=== PATIENT | male | born 1950 ===

== ENCOUNTER 2022-07-11 08:37 | Day surgery (SDC) | payer BC ==
[2022-07-11 09:32] LABS: MPV 8.1 fL (7.6-11.3)
[2022-07-11 09:35] LABS: Protime INR 1.06
--- NOTE | 2022-07-11 12:34 | RAD REPORT ---
EXAM DESCRIPTION: RAD - Lumbar Spine 3 Views - 07/11/2022 11:29 am CLINICAL HISTORY: M96.1 Radiculopathy COMPARISON: L Spine With Bending Views dated 07/27/2017; LUMBAR SPINE 3 VIEWS dated 10/18/2011; Spine Lumbar Wo Con dated 02/14/2019 FINDINGS: Orthopedic hardware is present spanning L5-S1. No evidence of hardware loosening or infect ion. Grade 1 anterolisthesis of L5 on S1 is present, similar to the 2019 prior study. Vacuum disc deg eneration is present at L2-3 and L4-5.
[2022-07-11 12:40] VITALS: BP 118/67; TEMP 97.9; O2SAT 97; BMI 40.6
--- NOTE | 2022-07-11 13:05 | RAD REPORT ---
EXAM DESCRIPTION: CT - Spine Lumbar Wo Con - 07/11/2022 11:19 am CLINICAL HISTORY: Radiculopathy. LUMBAR MYELOGRAM, M96.1 COMPARISON: Spine Lumbar Wo Con dated 02/14/2019 TECHNIQUE: Axial noncontrast CT imaging of the lumbar spine with high-resolution disc space imaging and coronal and sagittal re-formatted images. All CT scans are performed using dose optimization technique as appropriate and may include automated exposure control or mA/KV adjustment according to patient size. FINDINGS: Myelographic contrast injection was not technically feasible due to patient body habitus l imitations. T12-L1: Mild facet hypertrophy. L1-2: Mild posterior disc bulge with mild facet hypertrophy. L2-3: Significant loss of disc space with degenerative disc disease and vacuum disc degeneration. Pos terior endplate osteophyte is present. Moderate central canal narrowing is present. Mild encroachment in the right exit foramina by bony spurring. L3-4: Mild asymmetric posterior disc bulge along the left is seen. There is mild left lateral recess attenuation. Anterior inferior aspects of both exit foramina are mildly narrowed, greater on the left . L4-5: Significant disc thinning with degenerative disc disease and vacuum disc degeneration. Small po sterior osteophyte is present. [id number] central canal narrowing. Mild narrowing of both exit foramina also present. L5-S1: 9 mm anterolisthesis is present. Orthopedic hardware is in place spanning the L5-S1 S1 laminec rj identified. No hardware abnormality is seen no pathologic abnormality present at laminectomy sit e. IMPRESSION: Mild graphic contrast injection could not be successfully performed due to body habitus limitations. Multilevel degenerative spondylosis is present of the lumbar spine. Postsurgical hardware is noted sp anning L5-S1 with laminectomy present. No abnormal or worrisome finding seen related to this.
== END 2022-07-11 11:46 | disposition home or self-care (01) ==
LOC: DS 08:37
PROVIDERS: ATTEND Orthopaedic Surgery
DX: M96.1 Postlaminectomy syndrome, not elsewhere classified (principal); Z53.8 Procedure and treatment not carried out for other reasons
CPT/HCPCS: 36415; 72100; 72131; 85049; 85610; 85730

== ENCOUNTER 2023-10-04 00:18 | Inpatient (IN) | payer BC, OTHER ==
[2023-10-04] MEDS ORDERED: NA CHLORIDE 0.9% 1,000 ML ONE (00:32)
[2023-10-04 01:04] LABS: Absolute Lymphocytes (CBC) 0.6 K/uL (0.7-4.9); Hematocrit 48.8 % (39.6-49.0); Lymphocytes % 5.2 % (15.3-44.8); MCV 92.1 fL (80-100); MPV 7.3 fL (7.6-11.3); Platelets 193 thou/uL (152-406)
[2023-10-04 01:13] LABS: Albumin 3.2 g/dL (3.4-5.0); Bilirubin Total 1.1 mg/dL (0.2-1.0); Potassium 4.2 mEq/L (3.5-5.1); Protein, Total 7.8 g/dL (6.4-8.2)
[2023-10-04 01:48] LABS: Blood Morphology Comment NOT SEEN (NOT SEEN); Platelet Estimate ADEQ
--- NOTE | 2023-10-04 03:01 | ER ---
Nurse's Notes [facility] Name: Tomás Carroll Age: 72 yrs Sex: Male : 1950 Arrival Date: 10/04/2023 Time: 00:18 Bed 18 Private MD: Diagnosis: Fall on same level, unspecified;Concussion with loss of consciousness of unspecified duration;Other injury of right kidney, initial encounter;Abrasion of right eyelid and periocular area Presentation: 10/04 00:23 Chief complaint: Patient states: he was on the commode, when he "fell and went boom". ap3 patient states he doesn't remember if he had any LOC or not. patient presents to the ED with a bruise above his right eye. Coronavirus screen: At this time, the client does not indicate any symptoms associated with coronavirus-19. Ebola Screen: No symptoms or risks identified at this time. Initial Sepsis Screen: Does the patient meet any 2 criteria? No. Patient's initial sepsis screen is negative. Does the patient have a suspected source of infection? No. Patient's initial sepsis screen is negative. Risk Assessment: Do you want to hurt yourself or someone else? Patient reports no desire to harm self or others. Onset of symptoms was October 04, 2023. 00:23 Method Of Arrival: EMS: [facility] ap3 00:23 Acuity: EZRA 3 ap3 Triage Assessment: 00:30 General: Appears in no apparent distress. Behavior is calm, cooperative, appropriate ap3 for age. Pain: Complains of pain in forehead. Neuro: Level of Consciousness is awake, alert, obeys commands, Oriented to person, place, time, situation, Reports dizziness, throughout the day upon standing. Cardiovascular: Patient's skin is warm and dry. Respiratory: Airway is patent Respiratory effort is even, unlabored, Respiratory pattern is regular, symmetrical. Historical: - Allergies: 00:25 IV Contrast; ap3 00:25 Sulfa (Sulfonamide Antibiotics); ap3 - Home Meds: 00:26 Adderall XR Oral [Active]; Lyrica Oral [Active]; Benicar oral [Active]; Dexilant oral ap3 [Active]; atorvastatin oral [Active]; Metformin Oral [Active]; Viberzi oral [Active]; metoprolol succinate oral [Active]; Ventolin HFA 90 mcg/actuation Nebulizer HFA Aerosol Inhaler [Active]; - PMHx: 00:26 Diabetes mellitus; Chronic back pain; ap3 - Immunization history:: Client reports receiving the 2nd dose of the Covid vaccine. - Social history:: Smoking status: unknown. Screenin:30 Abuse screen: Denies threats or abuse. Nutritional screening: No deficits noted. ap3 Tuberculosis screening: No symptoms or risk factors identified. 03:22 [facility] ED Fall Risk Assessment (Adult) History of falling in the last 3 months, ap3 including since admission Yes- single mechanical fall (1 pt) Confusion or Disorientation No (0 pts) Intoxicated or Sedated No (0 pts) Impaired Gait Yes (1 pt) Mobility Assist Device Used Yes (1 pt) Altered Elimination No (0 pt). Assessment: 03:21 General: attempted to call report to 2nd floor. was informed that the receiving nurse ap3 would return my phone call. 03:25 General: report given to receiving nurse. ap3 Vital Signs: 00:23 BP 104 / 73; Pulse 114; Resp 18; Temp 98.3; Pulse Ox 97% on R/A; Weight 136.08 kg; ap3 Height 6 ft. 0 in. ; 01:26 BP 102 / 71; Pulse 107; Pulse Ox 96% on R/A; ap3 01:59 BP 128 / 77; Pulse 113; Pulse Ox 94% on R/A; ap3 02:58 BP 128 / 101; Pulse 110; Pulse Ox 93% on R/A; ap3 03:10 BP 132 / 82; Pulse 114; Pulse Ox 94% on R/A; ap3 00:23 Body Mass Index 40.69 (136.08 kg, 182.88 cm) ap3 ED Course: 00:23 Patient arrived in ED. ap3 00:25 Evelyn Marquez MD is Attending Physician. gb1 00:25 Triage completed. ap3 00:30 Arm band placed on right wrist. ap3 00:30 Patient has correct armband on for positive identification. Bed in low position. Call ap3 light in reach. Side rails up X2. front desk monitor on. Pulse ox on. NIBP on. 00:41 Initial lab(s) drawn, by me, sent to lab. Inserted saline lock: 22 gauge in left ap3 antecubital area, using aseptic technique. Blood collected. 00:46 Claudette Costello, RN is Primary Nurse. ap3 01:10 CT Head C Spine In Process Unspecified. EDMS 01:14 CT Abd/Pelvis - Without Cont (PO Contrast Only) In Process Unspecified. EDMS 03:02 Jessica Méndez MD is Hospitalizing Provider. gb1 03:22 Provided Education on: need for admission. ap3 03:22 No provider procedures requiring assistance completed. Patient admitted, IV remains in ap3 place. Administered Medications: 00:41 Drug: NS 0.9% IV 1000 ml IV at 1 bolus Per protocol; 1000 mL bolus Route: IV; Rate: 1 ap3 bolus; Site: left antecubital; 03:26 Follow up: IV Status: Completed infusion; IV Intake: 1000ml ap3 Medication: 00:31 VIS not applicable for this client. ap3 Intake: 03:26 IV: 1000ml; Total: 1000ml. ap3 Outcome: 03:01 Discharge ordered by . gb1 03:03 Decision to Hospitalize by Provider. gb1 03:22 Condition: good ap3 03:22 Instructed on the need for admit, 03:26 Admitted to Med/surg accompanied by tech, room 231, ap3 04:00 Patient left the ED. ap3 Signatures: Dispatcher [employer] EDOH Claudette Costello RN RN ap3 Jimmy, MD NELSON Rivas gb1
[2023-10-04] MEDS ORDERED: ALBUTEROL 2.5 MG/3 ML NEB SOL NEB PRN (03:04)
[2023-10-04] MEDS ORDERED: ONDANSETRON 4 MG/2 ML VIAL IV PRN (03:04)
--- NOTE | 2023-10-04 03:04 | EDPHYS ---
Physician Documentation [facility] Name: Tomás Carroll Age: 72 yrs Sex: Male : 1950 Arrival Date: 10/04/2023 Time: 00:18 Bed 18 Private MD: ED Physician Evelyn Marquez HPI: 10/04 02:48 This 72 yrs old Unknown Male presents to ER via EMS with complaints of Fall Injury. gb1 Historical: - Allergies: 00:25 IV Contrast; ap3 00:25 Sulfa (Sulfonamide Antibiotics); ap3 - Home Meds: 00:26 Adderall XR Oral [Active]; Lyrica Oral [Active]; Benicar oral [Active]; Dexilant oral ap3 [Active]; atorvastatin oral [Active]; Metformin Oral [Active]; Viberzi oral [Active]; metoprolol succinate oral [Active]; Ventolin HFA 90 mcg/actuation Nebulizer HFA Aerosol Inhaler [Active]; - PMHx: 00:26 Diabetes mellitus; Chronic back pain; ap3 - Immunization history:: Client reports receiving the 2nd dose of the Covid vaccine. - Social history:: Smoking status: unknown. ROS: 03:04 Constitutional: Negative for fever, chills, and weight loss, Eyes: Negative for injury, gb1 pain, redness, and discharge, Neck: Negative for injury, pain, and swelling, Cardiovascular: Negative for chest pain, palpitations, and edema, Respiratory: Negative for shortness of breath, cough, wheezing, and pleuritic chest pain, Abdomen/GI: Negative for abdominal pain, nausea, vomiting, diarrhea, and constipation, MS/Extremity: Negative for injury and deformity, Skin: Negative for injury, rash, and discoloration, Neuro: Negative for headache, weakness, numbness, tingling, and seizure, 03:04 Constitutional: Positive for Fall, Exam: 03:04 Constitutional: This is a well developed, well nourished patient who is awake, alert, gb1 and in no acute distress. Head/Face: Normocephalic, atraumatic. Eyes: Pupils equal round and reactive to light, extra-ocular motions intact. Lids and lashes normal. Conjunctiva and sclera are non-icteric and not injected. Cornea within normal limits. Periorbital areas with no swelling, redness, or edema. ENT: Nares patent. No nasal discharge, no septal abnormalities noted. Tympanic membranes are normal and external auditory canals are clear. Oropharynx with no redness, swelling, or masses, exudates, or evidence of obstruction, uvula midline. Mucous membranes moist. Chest/axilla: Normal chest wall appearance and motion. Nontender with no deformity. No lesions are appreciated. Vital Signs: 00:23 BP 104 / 73; Pulse 114; Resp 18; Temp 98.3; Pulse Ox 97% on R/A; Weight 136.08 kg; ap3 Height 6 ft. 0 in. ; 01:26 BP 102 / 71; Pulse 107; Pulse Ox 96% on R/A; ap3 01:59 BP 128 / 77; Pulse 113; Pulse Ox 94% on R/A; ap3 02:58 BP 128 / 101; Pulse 110; Pulse Ox 93% on R/A; ap3 03:10 BP 132 / 82; Pulse 114; Pulse Ox 94% on R/A; ap3 00:23 Body Mass Index 40.69 (136.08 kg, 182.88 cm) ap3 MDM: 00:25 Patient medically screened. gb1 03:04 Differential diagnosis: abrasion, closed head injury, contusion, multiple trauma, gb1 sprain. Data reviewed: vital signs, nurses notes. 10/04 00:28 Order name: CBC with Diff; Complete Time: 02:03 gb1 10/04 00:28 Order name: CMP; Complete Time: 01:37 gb10/04 00:28 Order name: Lipase; Complete Time: 01:37 gb10/04 00:28 Order name: Urinalysis w/ reflexes gb1 10/04 01:18 Order name: Manual Differential; Complete Time: 02:03 EDMS 10/04 03:09 Order name: Urinalysis w/ reflexes EDMS 10/04 03:09 Order name: Basic Metabolic Panel EDMS 10/04 03:09 Order name: Basic Metabolic Panel EDMS 10/04 03:09 Order name: CBC with Automated Diff EDMS 10/04 03:09 Order name: CBC with Automated Diff EDMS 10/04 03:35 Order name: C.difficile Real-time PCR EDMS 10/04 03:35 Order name: Fecal Leukocyte Stain EDMS 10/04 03:35 Order name: Ova and Parasites EDMS 10/04 03:35 Order name: Stool Culture EDMS 10/04 00:28 Order name: CT Abd/Pelvis - Without Cont (PO Contrast Only) gb1 10/04 00:28 Order name: CT Head Brain wo Cont gb1 10/04 00:28 Order name: CT Head C Spine gb1 10/04 03:10 Order name: Echo with Doppler EDMS 10/04 03:10 Order name: Carotid Artery Bilateral EDMS 10/04 03:10 Order name: ERT ORTHOSTATIC V/S EDMS 10/04 00:28 Order name: IV Saline Lock; Complete Time: 00:41 gb1 10/04 00:28 Order name: Labs collected and sent; Complete Time: 00:41 gb1 Administered Medications: 00:41 Drug: NS 0.9% IV 1000 ml IV at 1 bolus Per protocol; 1000 mL bolus Route: IV; Rate: 1 ap3 bolus; Site: left antecubital; 03:26 Follow up: IV Status: Completed infusion; IV Intake: 1000ml ap3 Disposition: 03:06 Co-signature as Attending Physician, Evelyn Marquez MD. gb1 Disposition Summary: 10/04/23 03:03 Hospitalization Ordered Notes: Hospitalization Status: Observation gb1 Provider: Jessica Méndez Location: Telemetry/MedSurg (observation)(10/04/23 03:03) gb1 Condition: Stable(10/04/23 03:03) gb1 Problem: new(10/04/23 03:03) gb1 Symptoms: are unchanged(10/04/23 03:03) gb1 Bed/Room Type: [place] [id number] Room Assignment: [facility](10/04/23 03:17) as6 Diagnosis - Fall on same level, unspecified gb1 - Concussion with loss of consciousness of unspecified duration gb1 - Other injury of right kidney, initial encounter gb1 - Abrasion of right eyelid and periocular area(10/04/23 03:03) gb1 Forms: - Medication Reconciliation Form gb1 - SBAR form gb1 - Leadership Thank You Letter gb1 Signatures: Dispatcher [employer] Claudette Bernal RN RN ap3 Eric Roach RN RN as6 Evelyn Marquez MD MD gb1 Corrections: (The following items were deleted from the chart) 03:01 03:01 Home gb1 gb1 03:01 03:01 new gb1 gb1 03:01 03:01 are unchanged gb1 gb1 03:01 03:01 Stable gb1 gb1 03:01 03:01 Fall from chair, initial encounter gb1 gb1 03:01 03:01 Acute kidney failure, unspecified gb1 gb1 03:01 03:01 Dehydration gb1 gb1 03:01 03:01 Abrasion of right eyelid and periocular area gb1 gb1 03:17 03:03 gb1 as6
--- NOTE | 2023-10-04 03:17 | P.HP ---
Certification for Inpatient Patient admitted to: Observation With expected LOS: <2 Midnights Patient will require the following post-hospital care: None Practitioner: I am a practitioner with admitting privileges, knowledge of patient current condition, hospital course, and medical plan of care. Services: Services provided to patient in accordance with Admission requirements found in Title 42 Section 412.3 of the Code of Federal Regulations Patient History Date of Service: 10/04/23 History of Present Illness: Pt is a 72 male with past medical history of DM II, morbid obesity and chronic back pain who presents with fall injury that happened at home. Pt had syncope and fell while having diarrhea on the commode. He sustained hematoma above his right eye. Pt does not remember what happened. Pt denies any prodrome before the incident but he remembers that he had a non-bloody vomitus after the incident. On admission, lab studies show WBC 11.2, Na 133, K 4.2, CR 1.64, glucose 206, AST 54, ALT 64. CT head is unremarkable. CT abd/pelvis is unremarkable. At bedside, pt is in NAD. He had difficulty finding his words. Pt denies any chest pain, SOB, fever, chills, nausea, vomiting, abd pain, leg edema or dysuria but reports diarrhea. Allergies shellfish derived Allergy (Verified 07/11/22 08:47) Anaphylaxis Sulfa (Sulfonamide Antibiotics) Allergy (Verified 07/11/22 08:47) Hives/Rash Home Medications: Albuterol Sulfate [Ventolin Hfa] 1 puff IH PRN 07/11/22 Atorvastatin Calcium [Lipitor] 10 mg PO DAILY 07/11/22 Metoprolol Succinate [Toprol Xl] 25 mg PO DAILY 07/11/22 Olmesartan Medoxomil [Benicar] 40 mg PO DAILY 07/11/22 Pregabalin [Lyrica] 100 mg PO BID 07/11/22 Atomoxetine HCl [Strattera] 40 mg PO DAILY 10/04/23 Celecoxib [Celebrex] 100 mg PO BID 10/04/23 Dextroamphetamine/Amphetamine [Adderall Xr 30 mg Capsule] 30 mg PO DAILY 10/04/23 Eluxadoline [Viberzi] 75 mg PO DAILY 10/04/23 Metformin HCl 1,000 mg PO BID 10/04/23 Pantoprazole [Protonix Tab*] 40 mg PO DAILY 10/04/23 Tizanidine [Zanaflex*] 4 mg PO BID 10/04/23 - Past Medical/Surgical History Has patient received pneumonia vaccine in the past: No Diabetic: Yes Past Medical History: Reviewed- Non-Contributory -: Diabetes Mellitus -: Chronic back pain Past Surgical History: Reviewed- Non-Contributory - Family History Family History: Reviewed- Non-Contributory - Social History Smoking Status: Never smoker Smoking therapy provided: No Patient receptive to therapy: No Alcohol use: No CD- Drugs: No Caffeine use: No Place of Residence: Home Review of Systems Unremarkable General: Unremarkable Eyes: Unremarkable ENT: Unremarkable Respiratory: Unremarkable Cardiovascular: Unremarkable Gastrointestinal: Diarrhea Genitourinary: Unremarkable Musculoskeletal: Unremarkable Integumentary: Unremarkable Neurological: Unremarkable Lymphatics: Unremarkable Physical Examination - Physical Exam General: Alert, In no apparent distress, Oriented x3 HEENT: Atraumatic, Normocephalic, PERRLA Neck: Supple, 2+ carotid pulse no bruit Respiratory: Clear to auscultation bilaterally, Normal air movement Cardiovascular: No edema, Normal pulses, Regular rate/rhythm, Normal S1 S2 Capillary refill: <2 Seconds Gastrointestinal: Normal bowel sounds, Soft and benign, Non-distended Musculoskeletal: No clubbing, No swelling Integumentary: No rashes, No breakdown Neurological: Normal speech, Normal strength at 5/5 x4 extr, Normal tone, Sensation intact Lymphatics: No axilla or inguinal lymphadenopathy - Studies Laboratory Data (last 24 hrs) 10/04/23 10/04/23 00:39 00:39 WBC 11.20 H Hgb 16.7 Hct 48.8 Plt Count 193 Sodium 133 L Potassium 4.2 BUN 22 H Creatinine 1.64 H Glucose 206 H Total Bilirubin 1.1 H AST 54 H ALT 64 H Alkaline Phosphatase 92 Lipase 38 Assessment and Plan - Plan Syncope: Pt had syncope while having diarrhea on the commode. Likely due to dehydration. Will give IVF. Follow up orthostatic vital signs, Echo and carotid ultrasound. CT head is unremarkable CVA symptoms: CT head is unremarkable. Will follow MRI brain, Echo and carotid ultrasound. Will consult Neurology. Allow permissive htn. Continue aspirin and atorvastatin. Will check lipid panel. Diarrhea: Will continue IVF. Follow up stool WBC, culture, ova and parasite. Will r/o C diff. If negative, will give loperamide. CT abd/pelvis is unremarkable. Hyponatremia: Na is 133. Will continue IVF and trend Na level. LEONOR: Cr is 1.64. Likely prerenal. Will continue IVF and avoid nephrotoxins and monitor renal function. Tachycardia: Due to dehydration. Will continue IVF Transaminitis: Will continue IVF and trend LFTs. Head hematoma: Due to the fall. Will monitor. Fall: Will continue fall precaution. Follow up vitamin D level. DM II: Continue accuchek, SSI, lantus 12u qhs, and ADA diet. Chronic back pain: Continue prn pain med. DVT ppx: heparin Code: full Discharge Plan: Home Plan to discharge in: 48 Hours - Advance Directives Does patient have a Living Will: No Does patient have a Durable POA for Healthcare: No - Code Status/Comfort Care Code Status Assessed: Yes Code Status: Full Code
[2023-10-04] MEDS: NA CHLORIDE 0.9% 1,000 ML IV SCH ×2 (04:00→15:54)
[2023-10-04 05:52] VITALS: BMI 41.5
[2023-10-04 05:53] LABS: Specific Gravity 1.025 (1.005-1.030); Urine Bacteria None Seen /HPF (<20); Urine Bilirubin NEGATIVE (Negative); Urine Blood 2+ (Negative); Urine Clarity Turbid (Clear); Urine Color Yellow (Yellow); Urine Glucose NEGATIVE (Negative); Urine Mucus Slight /HPF (None Seen); Urine Protein TRACE (Negative); Urine RBC 21-50 /HPF (None Seen); Urine Urobilinogen Normal (Normal)
[2023-10-04] MEDS: INSULIN REGULAR (HUMAN) 100 UNIT/ML SQ SCH ×4 (07:30→21:17)
[2023-10-04] MEDS ORDERED: ATORVASTATIN 10 MG TAB PO SCH (09:00)
[2023-10-04] MEDS: INSULIN GLARGINE 100 UNIT/ML SQ SCH (09:00)
[2023-10-04] MEDS: METOPROLOL XL 100 MG TAB PO SCH ×2 (09:00→17:52)
[2023-10-04] MEDS: HEPARIN 5000 UNIT/ML 1 ML VIAL SQ SCH ×2 (09:00→17:55)
--- NOTE | 2023-10-04 10:28 | RAD REPORT ---
EXAM DESCRIPTION: CT - Abdomen Pelvis Wo Contrast - 10/04/2023 6:38 am CLINICAL HISTORY: The patient is 72 years old and is Male; ABD PAIN TECHNIQUE: Axial computed tomography images of the abdomen and pelvis without intravenous contrast. Sagittal and coronal reformatted images were created and reviewed. This CT exam was performed usi ng one or more of the following dose reduction techniques: automated exposure control, adjustment o f the mA and/or kV according to patient size, and/or use of iterative reconstruction technique. COMPARISON: No relevant prior studies available. FINDINGS: Lung bases: Unremarkable. No mass. No consolidation. ABDOMEN: Liver: Diffuse hepatic steatosis. Gallbladder and bile ducts: Unremarkable. No calcified stones. No ductal dilation. Pancreas: Unremarkable. No ductal dilation. Spleen: Unremarkable. No splenomegaly. Adrenals: Unremarkable. No mass. Kidneys and ureters: Nonobstructing calcification in the left kidney. Stomach and bowel: Unremarkable. No obstruction. No mucosal thickening. PELVIS: Appendix: The appendix is normal. Bladder: Unremarkable. Reproductive: Unremarkable as visualized. ABDOMEN and PELVIS: Intraperitoneal space: Unremarkable. No free air. No significant fluid collection. Bones/joints: Postsurgical changes in the lumbar spine. Disc space narrowing with degenerative endplate changes in the spine. No acute fracture. No dislocation. Soft tissues: Small fat-containing inguinal hernias. Vasculature: Scattered atherosclerotic vascular calcifications. No abdominal aortic aneurysm. Lymph nodes: Enlarged 1.2 cm periportal lymph node. Enlarged 1.1 cm periportal lymph node. Tubes, lines and devices: Stimulator leads in the spinal canal. IMPRESSION: No acute finding in the abdomen/pelvis. Additional non-emergent findings as above. Electronically signed by: Juarez Foster MD 10/04/2023 01:44 AM KOSHER INSPECTOR Due to temporary technical issues with the PACS/Fluency reporting system, reports are being signed by the in house radiologist without review as a courtesy to ensure prompt reporting. The interpreting r adiologist is fully responsible for the content of the report.
--- NOTE | 2023-10-04 10:29 | RAD REPORT ---
EXAM DESCRIPTION: CT - Head C Spine Mpr Wo Con - 10/04/2023 6:38 am CLINICAL HISTORY: The patient is 72 years old and is Male; TRAUMA TECHNIQUE: Axial computed tomography images of the head/brain and cervical spine without intravenous contrast. Sagittal and coronal reformatted images were created and reviewed. This CT exam was pe rformed using one or more of the following dose reduction techniques: automated exposure control, a djustment of the mA and/or kV according to patient size, and/or use of iterative reconstruction techn ique. COMPARISON: No relevant prior studies available. FINDINGS: Brain: Mild nonspecific white matter changes likely related to chronic microvascular isc hemic disease. No hemorrhage. Ventricles: Unremarkable. No ventriculomegaly. Skull: Air-fluid levels in the maxillary sinuses. No acute fracture. Sinuses: See above. Mastoid air cells: Unremarkable as visualized. No mastoid effusion. Vertebrae: See below. Discs/spinal canal/neural foramina: Multilevel disc space narrowing with degenerative endplate ch anges most prominent from C4 to 5 through C6-7. Moderate to severe bilateral neural foraminal narrowing at C2-3. Moderate right neural foraminal narrowing at C3-4. Moderate to severe right neural foraminal narrowing at C5-6. Moderate to severe left neural foraminal narrowing at C6-7. Soft tissues: Unremarkable. IMPRESSION: No acute intracranial abnormality. No acute findings in the cervical spine. Electronically signed by: Juarez Foster MD 10/04/2023 01:33 AM MANAGER LVN Due to temporary technical issues with the PACS/Fluency reporting system, reports are being signed by the in house radiologist without review as a courtesy to ensure prompt reporting. The interpreting r adiologist is fully responsible for the content of the report.
--- NOTE | 2023-10-04 10:30 | RAD REPORT ---
EXAM DESCRIPTION: US - Carotid Artery Bilateral - 10/04/2023 3:50 am CLINICAL HISTORY: Syncope COMPARISON: CT cervical spine without contrast 10/04/2023 TECHNIQUE: Grayscale, color Doppler, and duplex Doppler images of carotid arteries. FINDINGS: Evaluation more difficult due to patient body habitus. Poor visualization of bilateral vertebral arteries. Right- Mild right carotid artery bifurcation calcified atherosclerotic plaque. CCA PSV 96 cm/s ICA PSV 76 cm/s Left- Mild left carotid artery bifurcation calcified atherosclerotic plaque. CCA PSV 68 cm/s ICA PSV 60 cm/s IMPRESSION: Mild calcified bilateral carotid artery bifurcation atherosclerotic plaques. No sonographic evidence of hemodynamically significant carotid artery stenosis. Electronically signed by: Cheo Wills MD 10/04/2023 05:30 AM CUSHION MAKER HAND Due to temporary technical issues with the PACS/Fluency reporting system, reports are being signed by the in house radiologist without review as a courtesy to ensure prompt reporting. The interpreting r adiologist is fully responsible for the content of the report.
[2023-10-04 13:01] LABS: SARS-COV-2 RT PCR NEGATIVE (NEGATIVE)
--- NOTE | 2023-10-04 13:35 | RAD REPORT ---
EXAM DESCRIPTION: MRI - Brain Wo Cont - 10/04/2023 12:46 pm CLINICAL HISTORY: CVA symptoms COMPARISON: Head CT of the same day at 1:03 a.m. TECHNIQUE: Multiplanar multisequence MRI of the brain performed without IV contrast. FINDINGS: Motion artifact limits evaluation on some sequences, despite attempts at repeat imaging. No evidence of acute infarct or other diffusion signal abnormality. No evidence of acute intracranial hemorrhage or abnormal extra-axial fluid collections. Mild diffuse parenchymal volume loss. Ventricular caliber otherwise within normal for age. Midline st ructures are unremarkable. Scattered subcortical and deep white matter T2/FLAIR hyperintensities, nonspecific, but suggestive of chronic small vessel ischemic changes. No mass effect or midline shift. Major vascular flow voids are preserved. Mastoid air cells and paranasal sinuses are clear. IMPRESSION: No acute intracranial process. No evidence of ventriculomegaly or mass effect.
--- NOTE | 2023-10-04 13:41 | P.PN ---
Date of Service: 10/04/23 Patient seen and examined. Patient appears to be somehow lethargic, fever of 101.3 recorded. COVID and influenza screening negative. Reported diarrhea. Diagnosis: Acute viral syndrome Vasovagal syncope versus hypovolemic shock. Patient was normotensive on arrival to the ED. Plan: Supportive measures with IV hydration. Start empiric antibiotics given fever. Repeat Head CT within 24 hours possibility of concussion/head injury.
[2023-10-04] MEDS: VANCOMYCIN 2 GM in NA CHLORIDE 0.9% 500 ML IVPB SCH (15:54)
[2023-10-04] MEDS: ASPIRIN 81 MG CHEWABLE TABLET PO SCH (15:54)
[2023-10-04] MEDS: CEFTRIAXONE 1,000 MG in NA CHLORIDE 0.9% 50 ML IVPB SCH (15:55)
[2023-10-04] MEDS: AMLODIPINE 10 MG TAB PO SCH (15:55)
[2023-10-04] MEDS ORDERED: VANCOMYCIN 1.25 GM in NA CHLORIDE 0.9% 250 ML IVPB SCH (21:00)
[2023-10-04] MEDS: ATORVASTATIN 40 MG TAB PO SCH (21:17)
[2023-10-05] MEDS: HEPARIN 5000 UNIT/ML 1 ML VIAL SQ SCH ×3 (01:59→15:59)
[2023-10-05 03:24] LABS: Absolute Lymphocytes (CBC) 0.9 K/uL (0.7-4.9); Hematocrit 44.5 % (39.6-49.0); Lymphocytes % 8.6 % (15.3-44.8); MCV 92.3 fL (80-100); MPV 7.6 fL (7.6-11.3); Platelets 154 thou/uL (152-406); RBC Red Blood Cell Count 4.82 M/uL (4.33-5.43)
[2023-10-05] MEDS: ACETAMINOPHEN 325 MG TABLET PO PRN ×2 (04:17→15:27)
[2023-10-05] MEDS: NA CHLORIDE 0.9% 1,000 ML IV SCH ×3 (04:17→23:03)
[2023-10-05] MEDS: INSULIN REGULAR (HUMAN) 100 UNIT/ML SQ SCH ×4 (07:30→21:00)
[2023-10-05] MEDS: CEFTRIAXONE 1,000 MG in NA CHLORIDE 0.9% 50 ML IVPB SCH (09:37)
[2023-10-05] MEDS: METOPROLOL XL 100 MG TAB PO SCH ×2 (09:38→21:34)
[2023-10-05] MEDS: AMLODIPINE 10 MG TAB PO SCH (09:38)
[2023-10-05] MEDS: ASPIRIN 81 MG CHEWABLE TABLET PO SCH (09:38)
[2023-10-05] MEDS: INSULIN GLARGINE 100 UNIT/ML SQ SCH (09:39)
--- NOTE | 2023-10-05 14:33 | P.PN ---
Subjective Date of Service: 10/05/23 Chief Complaint: Syncopal episode Patient was quite lethargic yesterday. He is more interactive today and states he feels better compared to yesterday Nursing staff report loose stools. Low-grade fever this morning. Physical Examination - Vital Signs Temperature: 98.2 F Blood Pressure: 146/70 Pulse: 85 Respirations: 18 Pulse Ox (%): 95 - Physical Exam General: Alert, In no apparent distress, Oriented x3, Obese HEENT: Mucous membr. moist/pink Neck: JVD not distended Respiratory: Clear to auscultation bilaterally, Normal air movement Cardiovascular: No edema, Regular rate/rhythm, Normal S1 S2 Gastrointestinal: Normal bowel sounds, Soft and benign, Non-distended, Other (Obese abdomen) Musculoskeletal: No swelling Integumentary: No rashes, No cyanosis Neurological: Normal strength at 5/5 x4 extr Lymphatics: No axilla or inguinal lymphadenopathy Assessment And Plan - Plan Syncope and collapse Likely multifactorial secondary to dehydration and vasovagal Patient with ongoing diarrhea. Continue IV fluid. He is currently maximum assist and not able to perform orthostatic vitals. Echocardiogram ordered. Strokelike symptoms/fall with scalp hematoma CT head is unremarkable. MRI brain shows no acute CVA. Continue aspirin and atorvastatin. Continue PT. Sepsis/Acute viral syndrome/diarrhea/fever Acute viral syndrome suspected. Patient had mild leukocytosis which has resolved. Blood cultures are pending, stool for C. difficile pending. Continue antibiotics for now. Add IV Flagyl. Continue IV fluid. Hyponatremia/LEONOR Likely secondary to diarrhea. Sodium level improved and LEONOR resolved with IV hydration. Continue to monitor renal function. Transaminitis Suspect secondary to acute viral syndrome versus sepsis Monitor LFT. DM II Blood sugar management with accuchek, SSI, lantus 12u qhs, and ADA diet. Chronic back pain As needed analgesics DVT ppx: heparin
[2023-10-05] MEDS ORDERED: ALBUTEROL 2.5 MG/3 ML NEB SOL NEB PRN (15:12)
[2023-10-05] MEDS: METRONIDAZOLE 500mg IVPB 500 MG/100 ML BAG IV SCH ×2 (15:27→23:04)
[2023-10-05] MEDS: VANCOMYCIN 2 GM in NA CHLORIDE 0.9% 500 ML IVPB SCH (15:55)
[2023-10-05] MEDS: ATORVASTATIN 40 MG TAB PO SCH (21:34)
[2023-10-06] MEDS: HEPARIN 5000 UNIT/ML 1 ML VIAL SQ SCH ×3 (01:00→16:21)
[2023-10-06 03:14] LABS: Absolute Lymphocytes (CBC) 0.8 K/uL (0.7-4.9); Hematocrit 40.6 % (39.6-49.0); Lymphocytes % 12.3 % (15.3-44.8); MCV 91.8 fL (80-100); MPV 7.7 fL (7.6-11.3); Platelets 148 thou/uL (152-406); RBC Red Blood Cell Count 4.42 M/uL (4.33-5.43)
[2023-10-06 03:32] LABS: Albumin 2.4 g/dL (3.4-5.0); Bilirubin Total 0.8 mg/dL (0.2-1.0); Protein, Total 6.5 g/dL (6.4-8.2)
[2023-10-06] MEDS: ACETAMINOPHEN 325 MG TABLET PO PRN (05:08)
[2023-10-06] MEDS: METRONIDAZOLE 500mg IVPB 500 MG/100 ML BAG IV SCH ×2 (07:21→15:29)
[2023-10-06] MEDS: INSULIN REGULAR (HUMAN) 100 UNIT/ML SQ SCH ×4 (07:30→21:54)
[2023-10-06] MEDS: NA CHLORIDE 0.9% 1,000 ML IV SCH ×2 (09:49→16:00)
[2023-10-06] MEDS: CEFTRIAXONE 1,000 MG in NA CHLORIDE 0.9% 50 ML IVPB SCH (09:49)
[2023-10-06] MEDS: INSULIN GLARGINE 100 UNIT/ML SQ SCH (09:50)
[2023-10-06] MEDS: ASPIRIN 81 MG CHEWABLE TABLET PO SCH (09:50)
[2023-10-06] MEDS: METOPROLOL XL 100 MG TAB PO SCH ×2 (09:50→21:54)
[2023-10-06] MEDS: AMLODIPINE 10 MG TAB PO SCH (09:50)
--- NOTE | 2023-10-06 13:22 | P.PN ---
Subjective Date of Service: 10/06/23 Chief Complaint: Syncopal episode Patient wake and alert. He feels that he is getting stronger. Reports persistent diarrhea. Notes that patient has a history of irritable bowel syndrome with diarrhea for which he takes Viberzi. No fever over the past 24 hours. Physical Examination - Vital Signs Temperature: 97.8 F Blood Pressure: 110/60 Pulse: 85 Respirations: 18 Pulse Ox (%): 92 - Physical Exam General: Alert, In no apparent distress, Oriented x3, Obese HEENT: Mucous membr. moist/pink Neck: Supple, JVD not distended Respiratory: Clear to auscultation bilaterally, Normal air movement Cardiovascular: No edema, Regular rate/rhythm, Normal S1 S2 Gastrointestinal: Normal bowel sounds, Soft and benign, Non-distended Musculoskeletal: No swelling, No tenderness Integumentary: No cyanosis Neurological: Normal strength at 5/5 x4 extr Assessment And Plan - Plan Syncope and collapse Likely multifactorial secondary to dehydration and vasovagal Patient with ongoing diarrhea. Suspect diarrhea secondary to irritable bowel syndrome versus acute viral syndrome Continue IV fluid. Echocardiogram is pending. Strokelike symptoms/fall with scalp hematoma CT head is unremarkable. MRI brain shows no acute CVA. Continue aspirin and atorvastatin. Continue PT. Sepsis/Acute viral syndrome/diarrhea/fever Acute viral syndrome suspected. Patient had mild leukocytosis which has resolved. Blood cultures are pending, stool for C. difficile pending. Continue antibiotics for now. Continue IV fluid. Hyponatremia/LEONOR Likely secondary to diarrhea. Hyponatremia resolved LEONOR resolved with IV hydration. Transaminitis Suspect secondary to acute viral syndrome versus sepsis LFT trended up DM II Blood sugar management with accuchek, SSI, lantus 12u qhs, and ADA diet. Chronic back pain As needed analgesics DVT ppx: heparin
[2023-10-06] MEDS: PREGABALIN 50 MG CAP PO SCH ×2 (13:51→21:54)
[2023-10-06] MEDS: VANCOMYCIN 2 GM in NA CHLORIDE 0.9% 500 ML IVPB SCH ×2 (15:00→16:27)
[2023-10-06] MEDS: ATORVASTATIN 40 MG TAB PO SCH (21:53)
[2023-10-07] MEDS: ACETAMINOPHEN 325 MG TABLET PO PRN ×2 (00:18→05:31)
[2023-10-07] MEDS: HEPARIN 5000 UNIT/ML 1 ML VIAL SQ SCH ×3 (00:19→16:54)
[2023-10-07] MEDS: METRONIDAZOLE 500mg IVPB 500 MG/100 ML BAG IV SCH ×4 (00:19→22:10)
[2023-10-07] MEDS: NA CHLORIDE 0.9% 1,000 ML IV SCH ×3 (00:26→13:14)
[2023-10-07] MEDS: PREGABALIN 50 MG CAP PO SCH ×3 (05:33→20:23)
[2023-10-07] MEDS: INSULIN REGULAR (HUMAN) 100 UNIT/ML SQ SCH ×4 (07:30→20:19)
[2023-10-07] MEDS: DEXTROAMPHETAMINE PO SCH (08:24)
[2023-10-07] MEDS: [UNRECOGNIZED DRUG - OTHER] PO SCH (08:24)
[2023-10-07] MEDS: AMPHETAMINE PO SCH (08:24)
[2023-10-07] MEDS: ELUXADOLINE 75 MG PO SCH (08:25)
[2023-10-07] MEDS: CEFTRIAXONE 1,000 MG in NA CHLORIDE 0.9% 50 ML IVPB SCH (08:50)
[2023-10-07] MEDS: ASPIRIN 81 MG CHEWABLE TABLET PO SCH (08:50)
[2023-10-07] MEDS: PANTOPRAZOLE 40MG TABLET PO SCH (08:50)
[2023-10-07] MEDS: AMLODIPINE 10 MG TAB PO SCH (08:50)
[2023-10-07] MEDS: INSULIN GLARGINE 100 UNIT/ML SQ SCH (08:51)
[2023-10-07] MEDS: METOPROLOL XL 100 MG TAB PO SCH ×2 (08:51→20:23)
[2023-10-07] MEDS: VANCOMYCIN 2 GM in NA CHLORIDE 0.9% 500 ML IVPB SCH (11:09)
--- NOTE | 2023-10-07 13:59 | P.PN ---
Subjective Date of Service: 10/07/23 Chief Complaint: Syncopal episode Patient states he continues to feel better and stronger. No more fever, he denies shortness of breath. Physical Examination - Vital Signs Temperature: 97.4 F Blood Pressure: 119/71 Pulse: 86 Respirations: 18 Pulse Ox (%): 93 - Physical Exam General: Alert, In no apparent distress, Oriented x3, Obese HEENT: Mucous membr. moist/pink Neck: Supple, JVD not distended Respiratory: Clear to auscultation bilaterally, Normal air movement Cardiovascular: No edema, Regular rate/rhythm, Normal S1 S2 Gastrointestinal: Normal bowel sounds, Soft and benign, Non-distended, No tenderness Musculoskeletal: No swelling Integumentary: No rashes, No cyanosis Neurological: Normal strength at 5/5 x4 extr Assessment And Plan - Plan Syncope and collapse Likely multifactorial secondary to dehydration and vasovagal Patient with ongoing diarrhea. Suspect diarrhea secondary to irritable bowel syndrome versus acute viral syndrome Patient is adequately hydrated. Discontinue IV fluids Echocardiogram is pending. Strokelike symptoms/fall with scalp hematoma CT head is unremarkable. MRI brain shows no acute CVA. Continue aspirin and atorvastatin. Decreased functional status Continue PT. Sepsis/Acute viral syndrome/diarrhea/fever Acute viral syndrome suspected. Patient had mild leukocytosis which has resolved. Blood cultures are pending, stool for C. difficile pending. Continue antibiotics for now. IV fluid discontinued. Hyponatremia/LEONOR Likely secondary to diarrhea. Hyponatremia resolved LEONOR resolved with IV hydration. IV fluids discontinued. Transaminitis Suspect secondary to acute viral syndrome versus sepsis Monitor LFT. DM II Blood sugar management with accuchek, SSI, lantus 12u qhs, and ADA diet. Chronic back pain As needed analgesics DVT ppx: heparin
[2023-10-07] MEDS: ATORVASTATIN 40 MG TAB PO SCH (20:24)
[2023-10-08] MEDS: HEPARIN 5000 UNIT/ML 1 ML VIAL SQ SCH ×3 (00:24→17:03)
[2023-10-08] MEDS: ACETAMINOPHEN 325 MG TABLET PO PRN ×3 (02:09→20:04)
[2023-10-08 03:33] LABS: Absolute Lymphocytes (CBC) 1.7 K/uL (0.7-4.9); Hematocrit 40.1 % (39.6-49.0); Lymphocytes % 20.9 % (15.3-44.8); MCV 93.1 fL (80-100); MPV 7.7 fL (7.6-11.3); Platelets 197 thou/uL (152-406); RBC Red Blood Cell Count 4.31 M/uL (4.33-5.43)
[2023-10-08 03:52] LABS: Albumin 2.2 g/dL (3.4-5.0); Bilirubin Total 0.3 mg/dL (0.2-1.0); Protein, Total 6.2 g/dL (6.4-8.2)
[2023-10-08] MEDS: VANCOMYCIN 2 GM in NA CHLORIDE 0.9% 500 ML IVPB SCH (04:14)
[2023-10-08] MEDS: PREGABALIN 50 MG CAP PO SCH ×3 (05:21→20:02)
[2023-10-08] MEDS: INSULIN REGULAR (HUMAN) 100 UNIT/ML SQ SCH ×4 (07:30→21:00)
[2023-10-08] MEDS: ELUXADOLINE 75 MG PO SCH (09:00)
[2023-10-08] MEDS: AMPHETAMINE PO SCH (09:00)
[2023-10-08] MEDS: DEXTROAMPHETAMINE PO SCH (09:00)
[2023-10-08] MEDS: [UNRECOGNIZED DRUG - OTHER] PO SCH (09:00)
[2023-10-08] MEDS: ASPIRIN 81 MG CHEWABLE TABLET PO SCH (10:03)
[2023-10-08] MEDS: METRONIDAZOLE 500mg IVPB 500 MG/100 ML BAG IV SCH (10:03)
[2023-10-08] MEDS: METOPROLOL XL 100 MG TAB PO SCH ×2 (10:04→20:03)
[2023-10-08] MEDS: INSULIN GLARGINE 100 UNIT/ML SQ SCH (10:04)
[2023-10-08] MEDS: PANTOPRAZOLE 40MG TABLET PO SCH (10:04)
[2023-10-08] MEDS: AMLODIPINE 10 MG TAB PO SCH (10:04)
[2023-10-08] MEDS: CEFTRIAXONE 1,000 MG in NA CHLORIDE 0.9% 50 ML IVPB SCH (10:04)
--- NOTE | 2023-10-08 13:19 | ECHO ---
HEIGHT: 5 ft 10 in WEIGHT: 289 lb 4.8 oz DATE OF STUDY: 10/08/[address]: Jessica Méndez MD 2-DIMENSIONAL: YES M.MODE: YES DOPPLER: YES COLOR FLOW: YES TDS: YES PORTABLE: YES DEFINITY: BUBBLE STUDY: DIAGNOSIS: SYNCOPE CARDIAC HISTORY: CATHERIZATION: SURGERY: PROSTHETIC VALVE: PACEMAKER: MEASUREMENTS (cm) DIASTOLIC (NORMALS) SYSTOLIC (NORMALS) IVSd 1.0 (0.6-1.2) LA Diam 3.8 (1.9-4.0) LVEF 59% LVIDd 4.1 (3.5-5.7) LVIDs 2.8 (2.0-3.5) %FS 31% LVPWd 1.1 (0.6-1.2) Ao Diam 3.4 (2.0-3.7) 2 DIMENSIONAL ASSESSMENT: RIGHT ATRIUM: NORMAL LEFT ATRIUM: NORMAL RIGHT VENTRICLE: NORMAL LEFT VENTRICLE: NORMAL TRICUSPID VALVE: MILD TRICUSPID REGURGITATION MITRAL VALVE: NORMAL PULMONIC VALVE: NORMAL AORTIC VALVE: NORMAL PERICARDIAL EFFUSION: NONE AORTIC ROOT: NORMAL LEFT VENTRICULAR WALL MOTION: NORMAL DOPPLER/COLOR FLOW: MILD TRICUSPID REGURGITATION COMMENTS: 1. NORMAL LEFT VENTRICULAR EJECTION FRACTION 55-60% 2. NORMAL WALL MOTION 3. MILD TRICUSPID REGURGITATION TECHNOLOGIST: TIAGO CAIN
[2023-10-08] MEDS: metroNIDAZOLE 500 MG TABLET PO SCH ×2 (14:43→20:04)
[2023-10-08] MEDS: CIPROFLOXACIN HCL 500 MG TAB PO SCH ×2 (14:43→20:03)
--- NOTE | 2023-10-08 16:56 | EKG ---
Test Date: 2023-10-07 Test Time: 23:05:25 Ehs Specialist: JOHNATHON MEASUREMENT RESULTS: Intervals: Rate: 75 OR: 168 QRSD: 80 QT: 400 QTc: 446 [place]: P: 63 OR: 168 QRS: -49 T: 29 INTERPRETIVE STATEMENTS: Normal sinus rhythm Pulmonary disease pattern Left anterior fascicular block Inferior infarct, age undetermined Abnormal ECG Compared to ECG 01/19/2006 11:11:47 Left anterior fascicular block now present Myocardial infarct finding now present Electronically Signed On 10-08-23 16:55:12 [employer] by Ha Win
--- NOTE | 2023-10-08 17:10 | P.PN ---
Subjective Date of Service: 10/08/23 Chief Complaint: Syncopal episode Patient denies any complaint today He denies shortness of breath. He ambulated with a walker during physical therapy session today. Physical Examination - Vital Signs Temperature: 97.8 F Blood Pressure: 124/60 Pulse: 67 Respirations: 18 Pulse Ox (%): 95 - Physical Exam General: Alert, In no apparent distress, Oriented x3 HEENT: Mucous membr. moist/pink Neck: Supple, JVD not distended Respiratory: Clear to auscultation bilaterally, Normal air movement Cardiovascular: No edema, Regular rate/rhythm, Normal S1 S2 Gastrointestinal: Soft and benign, Non-distended, No tenderness Musculoskeletal: No swelling Integumentary: No rashes, No cyanosis Neurological: Normal strength at 5/5 x4 extr Assessment And Plan - Plan Syncope and collapse Likely multifactorial secondary to dehydration and vasovagal Patient with ongoing diarrhea. Suspect diarrhea secondary to irritable bowel syndrome versus acute viral syndrome Patient is adequately hydrated. Off IV fluids Echocardiogram is unremarkable, normal EF. Strokelike symptoms/fall with scalp hematoma CT head is unremarkable. MRI brain shows no acute CVA. Continue aspirin and atorvastatin. Patient is status is improving, patient is now ambulating with a walker with standby assist. Continue PT. Anticipating DC to home with home health. Sepsis/Acute viral syndrome/diarrhea/fever Acute viral syndrome suspected. Patient had mild leukocytosis which has resolved. Blood cultures : No growth, stool for C. difficile pending. Patient has a history of irritable bowel syndrome with diarrhea suspect his diarrhea is related to the IBS. Transition IV antibiotics(Cefepime and vanco) to oral ciprofloxacin and Flagyl. IV fluid discontinued. Hyponatremia/LEONOR Likely secondary to diarrhea. Hyponatremia resolved LEONOR resolved with IV hydration. IV fluids discontinued. Transaminitis Suspect secondary to acute viral syndrome versus sepsis LFTs trended down. DM II Blood sugar management with accuchek, SSI, lantus 12u qhs, and ADA diet. Chronic back pain As needed analgesics DVT ppx: heparin
[2023-10-08] MEDS: ATORVASTATIN 40 MG TAB PO SCH (20:03)
[2023-10-09] MEDS: HEPARIN 5000 UNIT/ML 1 ML VIAL SQ SCH ×3 (00:19→16:10)
[2023-10-09] MEDS: PREGABALIN 50 MG CAP PO SCH ×3 (04:11→20:11)
[2023-10-09 06:50] LABS: Absolute Lymphocytes (CBC) 1.5 K/uL (0.7-4.9); MCV 92.4 fL (80-100); MPV 7.3 fL (7.6-11.3); Platelets 205 thou/uL (152-406); RBC Red Blood Cell Count 4.33 M/uL (4.33-5.43)
[2023-10-09 07:02] LABS: Albumin 2.3 g/dL (3.4-5.0); Bilirubin Direct 0.2 mg/dL (0-0.2); Bilirubin Indirect, Calculated 0.2 mg/dL (0.2-0.8); Bilirubin Total 0.4 mg/dL (0.2-1.0); Magnesium 1.4 mg/dL (1.6-2.4); Potassium 3.7 mEq/L (3.5-5.1); Protein, Total 5.9 g/dL (6.4-8.2)
[2023-10-09] MEDS: INSULIN REGULAR (HUMAN) 100 UNIT/ML SQ SCH ×4 (07:30→21:19)
[2023-10-09] MEDS: PANTOPRAZOLE 40MG TABLET PO SCH (08:59)
[2023-10-09] MEDS: METOPROLOL XL 100 MG TAB PO SCH ×2 (08:59→20:11)
[2023-10-09] MEDS: ELUXADOLINE 75 MG PO SCH (09:00)
[2023-10-09] MEDS: ACETAMINOPHEN 325 MG TABLET PO PRN ×2 (09:00→20:13)
[2023-10-09] MEDS: AMPHETAMINE PO SCH (09:00)
[2023-10-09] MEDS: [UNRECOGNIZED DRUG - OTHER] PO SCH (09:00)
[2023-10-09] MEDS: DEXTROAMPHETAMINE PO SCH (09:00)
[2023-10-09] MEDS: CIPROFLOXACIN HCL 500 MG TAB PO SCH ×2 (09:00→20:11)
[2023-10-09] MEDS: AMLODIPINE 10 MG TAB PO SCH (09:02)
[2023-10-09] MEDS: ASPIRIN 81 MG CHEWABLE TABLET PO SCH (09:02)
[2023-10-09] MEDS: metroNIDAZOLE 500 MG TABLET PO SCH ×3 (09:02→20:11)
[2023-10-09] MEDS: INSULIN GLARGINE 100 UNIT/ML SQ SCH (09:04)
--- NOTE | 2023-10-09 09:27 | P.PN ---
Date of Service: 10/09/23 Subjective: only one loose-fredo BM in last 24hrs, no more watery diarrhea no crampy abd pain, no nausea/vomiting did feel some lightheadedness going to bathroom earlier feels strength improving ROS: 10 point ROS as noted above, otherwise negative Physical Exam: Gen: Alert, Oriented, NAD HEENT: Normal conjunctiva, sclera anicteric CV: Regular rate & rhythm, no edema Pulm: nonlabored respirations on room air, clear bilaterally Abd: soft, nontender, nondistended Neuro: normal speech, normal affect Vitals Reviewed Problem List: Syncope and collapse Strokelike symptoms/fall with scalp hematoma Sepsis/Acute viral syndrome/diarrhea/fever hx of irritable bowel syndrome-D LEONOR/Hyponatremia, secondary to dehydration; resolved Transaminitis NIDDM2 Chronic back pain Syncope and collapse diarrhea illness Likely multifactorial secondary to dehydration and vasovagal diarrhea improving, suspect secondary to IBS vs acute viral syndrome Patient is adequately hydrated. Off IV fluids Echocardiogram is unremarkable, normal EF. Strokelike symptoms/fall with scalp hematoma CT head (10/04): unremarkable. MRI brain (10/04): no acute CVA. Carotid u/s (10/04): Mild calcified bilateral carotid artery bifurcation atherosclerotic plaques. Continue aspirin and atorvastatin. Strength improving. Patient ambulating with walker / assistance now. Continue PT. Anticipating DC to home with Sepsis/Acute viral syndrome/diarrhea/fever hx of irritable bowel syndrome Suspect Acute viral syndrome Patient had mild leukocytosis which has resolved. Blood cx (10/04): NGTD. C. difficile pending. Patient has a history of irritable bowel syndrome with diarrhea suspect his diarrhea is related to the IBS. Previously on empiric IV rocephin / flagyl (10/04-10/08) and vanc (10/06-10/08) Antibiotics deescalated to PO cipro / flagyl (10/08-) Off IV fluids Continue PPI LEONOR/Hyponatremia, secondary to dehydration; resolved Likely secondary to diarrhea. resolved with IV Fluids Transaminitis Suspect secondary to acute viral syndrome versus sepsis LFTs trending down. NIDDM2 accuchek, SSI Continue semglee. Titrate PRN Chronic back pain PRN analgesics VTE: heparin sq Code: Full Dispo: home, HH ~1 day
[2023-10-09] MEDS: ATORVASTATIN 40 MG TAB PO SCH (20:10)
[2023-10-10] MEDS: HEPARIN 5000 UNIT/ML 1 ML VIAL SQ SCH ×2 (01:52→09:00)
[2023-10-10] MEDS: ACETAMINOPHEN 325 MG TABLET PO PRN ×2 (03:04→09:05)
[2023-10-10] MEDS: PREGABALIN 50 MG CAP PO SCH (04:31)
[2023-10-10] MEDS: INSULIN REGULAR (HUMAN) 100 UNIT/ML SQ SCH ×2 (07:30→11:30)
[2023-10-10 08:49] VITALS: TEMP 97.1
[2023-10-10] MEDS: [UNRECOGNIZED DRUG - OTHER] PO SCH (09:00)
[2023-10-10] MEDS: AMPHETAMINE PO SCH (09:00)
[2023-10-10] MEDS: ELUXADOLINE 75 MG PO SCH (09:00)
[2023-10-10] MEDS: DEXTROAMPHETAMINE PO SCH (09:00)
--- NOTE | 2023-10-10 09:03 | P.DS ---
Admission Date: 10/04/23 Discharge Date: 10/10/23 Disposition: ROUTINE DISCHARGE Discharge Condition: GOOD Reason for Admission: Syncopal episode Brief History of Present Illness: 72 yo M, PMH: DM II, morbid obesity and chronic back pain Patient presents with fall injury that happened at home. Pt had syncope and fell while having diarrhea on the commode. He sustained hematoma above his right eye. Pt does not remember what happened. Pt denies any prodrome before the incident but he remembers that he had a non-bloody vomitus after the incident. On admission, lab studies show WBC 11.2, Na 133, K 4.2, CR 1.64, glucose 206, AST 54, ALT 64. CT head is unremarkable. CT abd/pelvis is unremarkable. At bedside, pt is in NAD. He had difficulty finding his words. Pt denies any chest pain, SOB, fever, chills, nausea, vomiting, abd pain, leg edema or dysuria but reports diarrhea. Hospital Course: Problem List: Syncope and collapse diarrhea illness Strokelike symptoms/fall with scalp hematoma Sepsis/Acute viral syndrome/diarrhea/fever hx of irritable bowel syndrome-D LEONOR/Hyponatremia, secondary to dehydration; resolved 2 Incidental Enlarged periportal lymph nodes (1.2cm & 1.1cm) Transaminitis NIDDM2 Chronic back pain Patient presented with after syncope/fall episode with reported fever and diarrhea. CT head, MRI brain were negative for any acute intracranial abnormalities. He iniitally had some generalized weakness and slight unsteady gait, which improved. Recommended to continue working with PT as outpatient. Suspect Multifactorial etiology secondary to dehydration / vasovagal. Patient was started on empiric IV rocephin / flagyl to cover possible bacterial/infectious etiology. Blood cultures without growth since 10/04/23. Diarrhea improved and for 2-3 days prior to discharge patient reported only 1-2 loose BMs / day. Not watery enough to allow for c diff testing. Of note, patient has been taking his Viberzi which helps with his IBS-D symptoms. He did not have any abdominal tenderness, and only had a mild leukocytosis of 11.2 on admission. He otherwise remained afebrile. Suspect acute viral syndrome. Patient continued to show improvement after deescalating IV antibiotics to PO cipro / flagyl. Pt noted to have a history of irritable bowel syndrome and suspect diarrhea is related to the IBS. Patient noted to have small loose BM in last 24 hours. Watery diarrhea resolved. Patient was feeling better and deemed stable for discharge home. LFTs were noted to be elevated during hospitalization and improved. Suspect secondary to acute viral syndrome / sepsis. Recommend repeat blood work in ~1 week to monitor LFTs. AST peaked at 179 on 10/06 and down to 101 on 10/09 ALT peaked at 290 on 10/06, down to 155 on 10/09 Alkphos remained normal in 90s. CT abdomen/pelvis on admission did not reveal any acute processes. Did note incidental 1.1 cm and a 1.2cm enlarged lymph node, and diffuse hepatic steatosis. Suspect this elevation in LFTs are secondary to fatty liver and acute viral illness and the mild lymphadenopathy secondary to this viral / diarrheal illness as well. Recommend follow up with PCP and repeat imaging in a few months to monitor size / for resolution. No lesions were noted of gallbladder/biliary tree / liver, and patient reported getting regular c-scopes, with last one ~2-3 yrs ago. He is already supposed to have another colonoscopy this year. Repeat LFTs in 1-2 weeks to ensure resolution as well. Medications: Cipro / flagyl x 5 days, to complete a ~12 day course of antibiotics continue home meds as previously prescribed. Counselled on caution with muscle relaxer in the short term - if still feeling slightly dizzy / unsteady, as this can contribute to issue. Follow up: PCP 3-5 days Physical Exam: Gen: Alert, Oriented, NAD HEENT: Normal conjunctiva, sclera anicteric CV: Regular rate & rhythm, no edema Pulm: nonlabored respirations on room air, clear bilaterally Abd: soft, nontender, nondistended Neuro: normal speech, normal affect Vital Signs/Physical Exam: Temp Pulse Resp BP Pulse Ox 97.1 F 66 16 146/71 H 95 10/10/23 08:00 10/10/23 08:00 10/10/23 08:00 10/10/23 08:00 10/10/23 08:00 Laboratory Data at Discharge: WBC 7.20 thou/uL (4.3-10.9) 10/09/23 05:13 Hgb 13.9 g/dL (13.6-17.9) 10/09/23 05:13 Hct 40.0 % (39.6-49.0) 10/09/23 05:13 Plt Count 205 thou/uL (152-406) 10/09/23 05:13 Sodium 141 mEq/L (136-145) 10/09/23 05:43 Potassium 3.7 mEq/L (3.5-5.1) 10/09/23 05:43 BUN 8 mg/dL (7-18) 10/09/23 05:43 Creatinine 0.87 mg/dL (0.70-1.30) 10/09/23 05:43 Glucose 152 mg/dL (74-106) H 10/09/23 05:43 Magnesium 1.4 mg/dL (1.6-2.4) L 10/09/23 05:43 Total Bilirubin 0.4 mg/dL (0.2-1.0) 10/09/23 05:43 AST 101 U/L (15-37) H 10/09/23 05:43 ALT 155 U/L (16-61) H 10/09/23 05:43 Alkaline Phosphatase 102 U/L (45-117) 10/09/23 05:43 Triglycerides 184 mg/dL (<150) H 10/04/23 07:11 Cholesterol 85 mg/dL (<200) 10/04/23 07:11 HDL Cholesterol 30 mg/dL (40-60) L 10/04/23 07:11 Cholesterol/HDL Ratio 2.83 10/04/23 07:11 Lipase 38 U/L (13-75) 10/04/23 00:39 Home Medications: Albuterol Sulfate [Ventolin Hfa] 1 puff IH DAILY 07/11/22 Atorvastatin Calcium [Lipitor] 10 mg PO DAILY 07/11/22 Metoprolol Succinate [Toprol Xl] 100 mg PO BID 07/11/22 Olmesartan Medoxomil [Benicar] 40 mg PO DAILY 07/11/22 Pregabalin [Lyrica] 100 mg PO Q8H 07/11/22 Atomoxetine HCl [Strattera] 40 mg PO DAILY 10/04/23 Celecoxib [Celebrex] 100 mg PO BID 10/04/23 Dextroamphetamine/Amphetamine [Adderall Xr 30 mg Capsule] 30 mg PO DAILY 10/04/23 Eluxadoline [Viberzi] 75 mg PO DAILY 10/04/23 Metformin HCl 1,000 mg PO BID 10/04/23 Pantoprazole [Protonix Tab*] 40 mg PO DAILY 10/04/23 Tizanidine [Zanaflex*] 4 mg PO BID 10/04/23 methocarbamoL [Methocarbamol] 500 mg PO BID 10/04/23 Physician Discharge Instructions: Patient presented with after syncope/fall episode with reported fever and diarrhea. CT head, MRI brain were negative for any acute intracranial abnormalities. He iniitally had some generalized weakness and slight unsteady gait, which improved. Recommended to continue working with PT as outpatient. Suspect Multifactorial etiology secondary to dehydration / vasovagal. Patient was started on empiric IV rocephin / flagyl to cover possible bacterial/infectious etiology. Blood cultures without growth since 10/04/23. Diarrhea improved and for 2-3 days prior to discharge patient reported only 1-2 loose BMs / day. Not watery enough to allow for c diff testing. Of note, patient has been taking his Viberzi which helps with his IBS-D symptoms. He did not have any abdominal tenderness, and only had a mild leukocytosis of 11.2 on admission. He otherwise remained afebrile. Suspect acute viral syndrome. Patient continued to show improvement after deescalating IV antibiotics to PO cipro / flagyl. Pt noted to have a history of irritable bowel syndrome and suspect diarrhea is related to the IBS. Patient noted to have small loose BM in last 24 hours. Watery diarrhea resolved. Patient was feeling better and deemed stable for discharge home. LFTs were noted to be elevated during hospitalization and improved. Suspect secondary to acute viral syndrome / sepsis. Recommend repeat blood work in ~1 week to monitor LFTs. AST peaked at 179 on 10/06 and down to 101 on 10/09 ALT peaked at 290 on 10/06, down to 155 on 10/09 Alkphos remained normal in 90s. CT abdomen/pelvis on admission did not reveal any acute processes. Did note incidental 1.1 cm and a 1.2cm enlarged lymph node, and diffuse hepatic steatosis. Suspect this elevation in LFTs are secondary to fatty liver and acute viral illness and the mild lymphadenopathy secondary to this viral / diarrheal illness as well. Recommend follow up with PCP and repeat imaging in a few months to monitor size / for resolution. No lesions were noted of gallbladder/biliary tree / liver, and patient reported getting regular c-scopes, with last one ~2-3 yrs ago. He is already supposed to have another colonoscopy this year. Repeat LFTs in 1-2 weeks to ensure resolution as well. Medications: Cipro / flagyl x 5 days, to complete a ~12 day course of antibiotics continue home meds as previously prescribed. Counselled on caution with muscle relaxer in the short term - if still feeling slightly dizzy / unsteady, as this can contribute to issue. Follow up: PCP 3-5 days Followup: Clementina Santana MD [Primary Care Provider] - Time spent managing pt's care (in minutes): 45
[2023-10-10] MEDS: ASPIRIN 81 MG CHEWABLE TABLET PO SCH (09:04)
[2023-10-10] MEDS: METOPROLOL XL 100 MG TAB PO SCH (09:06)
[2023-10-10] MEDS: PANTOPRAZOLE 40MG TABLET PO SCH (09:07)
[2023-10-10] MEDS: metroNIDAZOLE 500 MG TABLET PO SCH (09:07)
[2023-10-10] MEDS: AMLODIPINE 10 MG TAB PO SCH (09:07)
[2023-10-10] MEDS: CIPROFLOXACIN HCL 500 MG TAB PO SCH (09:12)
[2023-10-10 10:57] VITALS: O2SAT 95
[2023-10-10 12:29] VITALS: BP 115/63
[2023-10-10 12:46] LABS: Absolute Lymphocytes (CBC) 1.7 K/uL (0.7-4.9); Hematocrit 43.8 % (39.6-49.0); Lymphocytes % 18.8 % (15.3-44.8); MCV 93.6 fL (80-100); MPV 7.3 fL (7.6-11.3); Platelets 253 thou/uL (152-406); RBC Red Blood Cell Count 4.68 M/uL (4.33-5.43)
[2023-10-10 13:02] LABS: Albumin 2.6 g/dL (3.4-5.0); Bilirubin Total 0.3 mg/dL (0.2-1.0); Magnesium 1.8 mg/dL (1.6-2.4); Potassium 3.9 mEq/L (3.5-5.1); Protein, Total 6.5 g/dL (6.4-8.2)
== END 2023-10-10 13:22 | disposition home or self-care (01) | DRG 872 ==
LOC: ER 00:18 → ERHOLD 03:03 → 2ND 03:35 → OBSVTOIN 13:16
PROVIDERS: ADMIT Hospitalist; ATTEND Hospitalist
DX: A41.9 Sepsis, unspecified organism (principal); S06.0X9A Concussion with loss of consciousness of unspecified duration, initial encounter; E87.1 Hypo-osmolality and hyponatremia; Z68.41 Body mass index [BMI] 40.0-44.9, adult; N17.9 Acute kidney failure, unspecified; E66.01 Morbid (severe) obesity due to excess calories; G89.29 Other chronic pain; M54.9 Dorsalgia, unspecified; E86.0 Dehydration; E11.9 Type 2 diabetes mellitus without complications; K76.0 Fatty (change of) liver, not elsewhere classified; S00.03XA Contusion of scalp, initial encounter; S00.211A Abrasion of right eyelid and periocular area, initial encounter; B34.9 Viral infection, unspecified; R00.0 Tachycardia, unspecified; R79.89 Other specified abnormal findings of blood chemistry; R74.01 Elevation of levels of liver transaminase levels; R55 Syncope and collapse; Z88.2 Allergy status to sulfonamides; Z79.84 Long term (current) use of oral hypoglycemic drugs; Z11.52 Encounter for screening for COVID-19; Z79.899 Other long term (current) drug therapy; Z91.041 Radiographic dye allergy status; W19.XXXA Unspecified fall, initial encounter; Y93.9 Activity, unspecified; Y92.9 Unspecified place or not applicable; Y99.9 Unspecified external cause status
CPT/HCPCS: 0241U; 36415; 70450; 70551; 72125; 74176; 80048; 80053; 80061; 80076; 80202; 81001; 82947; 83605; 83690; 83735; 85025; 87040; 87045; 87046; 93005; 93306; 93880; 96360; 96361; 97110; 97116; 97161; 97530; 99285; G0378; J0696; J1644; J1815; J7030; J7040